=== PATIENT | female | born 1985 | race Caucasian/White ===

== ENCOUNTER 2022-08-30 08:06 | Outpatient (CLI) | payer BC, OTHER ==
[2022-08-30 08:46] LABS: BASOPHILS % (AUTO) 0.2 % (0-1); EOSINOPHILS # (AUTO) 0.1 X10'3 (0-0.9); EOSINOPHILS % (AUTO) 3.9 % (0-6); HEMOGLOBIN 13.9 g/dl (12.0-16.0); LYMPHOCYTES % (AUTO) 32.1 % (21-51); MEAN CORPUSCULAR HEMOGLOBIN 31.1 PG (27.0-31.0); MEAN CORPUSCULAR HGB CONC 34.7 g/dL (33.0-36.5); MEAN CORPUSCULAR VOLUME 89.6 FL (78-98); MEAN PLATELET VOLUME 7.8 FL (7.4-10.4); MONOCYTES # (AUTO) 0.2 X10'3 (0-0.9); MONOCYTES % (AUTO) 7.4 % (2-12); NEUTROPHILS # (AUTO) 1.7 X10'3 (1.8-7.7); NEUTROPHILS % (AUTO) 56.4 % (42-75); PLATELET COUNT 229 X10'3 (140-440); RED BLOOD COUNT 4.46 X10'6 (4.20-5.60); RED CELL DISTRIBUTION WIDTH 13.2 % (11.5-14.5)
[2022-08-30 09:05] LABS: HEMOGLOBIN A1C 4.9 % (4.5-6.2); PLATELET ESTIMATE NORMAL; TOTAL CELLS COUNTED 100
[2022-09-02 05:30] LABS: ESTRADIOL 29.9 pg/mL (.); FSH, SERUM 9.9 mIU/mL (.); PROLACTIN 15.1 ng/mL (4.8-23.3); RUBELLA ANTIBODIES, IGG 4.49 index (Immune >0.99)
[2022-09-04 12:53] LABS: ANTI-MULLERIAN HORMONE 1.05 ng/mL (.)
[2022-09-05 19:45] LABS: TESTOSTERONE, FREE, DIRECT 2.5 pg/mL (0.0-4.2)
== END 2022-08-30 23:59 | disposition home or self-care (01) ==
LOC: LAB 08:06
PROVIDERS: ATTEND Obstetrics & Gynecology
DX: N92.6 Irregular menstruation, unspecified (principal)
CPT/HCPCS: 36415; 82397; 82670; 83001; 83002; 83036; 84146; 84402; 84403; 84439; 84443; 85007; 85025; 86762

== ENCOUNTER 2022-10-12 08:58 | Outpatient (CLI) | payer BC | END 2022-10-12 23:59 | disposition home or self-care (01) | LOC: LAB 08:58 | PROVIDERS: ATTEND Obstetrics & Gynecology | DX: N97.0 Female infertility associated with anovulation (principal) | CPT/HCPCS: 36415; 82670; 84144 ==